=== PATIENT | female | born 1990 | race Caucasian/White ===

== ENCOUNTER 2016-08-10 12:08 | Emergency (ER) | payer OTHER ==
[~2016-08-10] VITALS: Ht 165.1 cm; Wt 114.1 kg
[2016-08-10] MEDS ORDERED: ETON68IM3 SD (12:25)
[2016-08-10 13:08] VITALS: BP 115/65
== END 2016-08-10 16:08 | disposition left against medical advice (07) ==
LOC: EMS 12:12
DX: R07.9 Chest pain, unspecified (principal); F41.9 Anxiety disorder, unspecified; F17.210 Nicotine dependence, cigarettes, uncomplicated; Z88.8 Allergy status to other drugs, medicaments and biological substances
CPT/HCPCS: 93005; 99283